=== PATIENT | female | born 1930 | race Caucasian/White ===

== ENCOUNTER 2017-01-11 10:11 | Outpatient (CLI) | payer MEDICARE, OTHER | END 2017-01-11 10:12 | disposition critical access hospital (66) | DX: R53.1 Weakness (principal); R53.83 Other fatigue | CPT/HCPCS: A0425; A0429 ==

== ENCOUNTER 2017-01-11 10:32 | Inpatient (IN) | payer MEDICARE, OTHER ==
[2017-01-11] MEDS ORDERED: SODIUM CHLORIDE 0.9% 1,000 ML IV ONE ×2 (11:07→13:08)
[2017-01-11] MEDS ORDERED: PANTOPRAZOLE 40 MG VIAL IVP STA (13:00)
[2017-01-11] MEDS ORDERED: PANTOPRAZOLE 40 MG VIAL ONE (13:15)
[2017-01-11] MEDS ORDERED: WATER FOR INJECTION,STERILE 10 ML ONE (13:16)
[2017-01-11] MEDS ORDERED: SODIUM CHLORIDE FLUSH 0.9% 10 ML SYRINGE IVP PRN (13:57)
[2017-01-11] MEDS ORDERED: FUROSEMIDE 20 MG/2 ML VIAL IVP PRN (14:42)
[2017-01-11] MEDS: SODIUM CHLORIDE FLUSH 0.9% 10 ML SYRINGE IVP SCH ×2 (14:56→23:46)
[2017-01-11] MEDS: SODIUM CHLORIDE 0.9% 1,000 ML IV SCH (14:56)
[2017-01-11] MEDS ORDERED: PANTOPRAZOLE 40 MG TABLET PO SCH (17:00)
[2017-01-11] MEDS: ACETAMINOPHEN 325 MG TABLET PO PRN (18:32)
[2017-01-11] MEDS: MEMANTINE 5 MG TABLET PO SCH (21:01)
[2017-01-11] MEDS: SUCRALFATE 1 GM/10 ML UDC PO SCH (21:01)
[2017-01-12] MEDS: SODIUM CHLORIDE FLUSH 0.9% 10 ML SYRINGE IVP SCH ×3 (05:14→20:26)
[2017-01-12] MEDS: SUCRALFATE 1 GM/10 ML UDC PO SCH ×3 (05:14→16:07)
[2017-01-12] MEDS: PANTOPRAZOLE 40 MG TABLET PO SCH ×2 (06:35→16:07)
[2017-01-12] MEDS: POLYETHYLENE GLYCOL 3350 17 GM PACKET PO SCH (08:15)
[2017-01-12] MEDS: MULTIVITAMIN TABLET PO SCH (08:15)
[2017-01-12] MEDS: SERTRALINE 50 MG TABLET PO SCH (08:15)
[2017-01-12] MEDS: MEMANTINE 5 MG TABLET PO SCH ×2 (08:15→20:25)
[2017-01-12] MEDS: SODIUM CHLORIDE 0.9% 1,000 ML IV SCH ×2 (10:14→18:45)
[2017-01-12] MEDS ORDERED: IOPAMIDOL-300 50 ML VIAL PO ONE (23:00)
[2017-01-13] MEDS: SODIUM CHLORIDE 0.9% 1,000 ML IV SCH ×2 (04:57→14:02)
[2017-01-13] MEDS: SODIUM CHLORIDE FLUSH 0.9% 10 ML SYRINGE IVP SCH ×2 (06:27→14:02)
[2017-01-13] MEDS: MEMANTINE 5 MG TABLET PO SCH (08:35)
[2017-01-13] MEDS: POLYETHYLENE GLYCOL 3350 17 GM PACKET PO SCH (08:35)
[2017-01-13] MEDS: MULTIVITAMIN TABLET PO SCH (08:35)
[2017-01-13] MEDS: ACETAMINOPHEN 325 MG TABLET PO PRN (08:36)
[2017-01-13] MEDS: SERTRALINE 50 MG TABLET PO SCH (08:36)
[2017-01-13] MEDS ORDERED: LISINOPRIL 5 MG TABLET PO SCH (09:00)
== END 2017-01-13 16:15 | disposition hospice, home (50) | DRG 378 ==
PROC: 30233N1 Transfusion of Nonautologous Red Blood Cells into Peripheral Vein, Percutaneous Approach (ICD-10-PCS; principal; 2017-01-11)
DX: K92.2 Gastrointestinal hemorrhage, unspecified (principal); K92.1 Melena; D50.0 Iron deficiency anemia secondary to blood loss (chronic); E86.0 Dehydration; I10 Essential (primary) hypertension; E11.9 Type 2 diabetes mellitus without complications; K21.9 Gastro-esophageal reflux disease without esophagitis; D62 Acute posthemorrhagic anemia; C18.7 Malignant neoplasm of sigmoid colon; C77.2 Secondary and unspecified malignant neoplasm of intra-abdominal lymph nodes; N18.4 Chronic kidney disease, stage 4 (severe); N17.9 Acute kidney failure, unspecified; F03.90 Unspecified dementia, unspecified severity, without behavioral disturbance, psychotic disturbance, mood disturbance, and anxiety; I12.9 Hypertensive chronic kidney disease with stage 1 through stage 4 chronic kidney disease, or unspecified chronic kidney disease; E11.22 Type 2 diabetes mellitus with diabetic chronic kidney disease; K57.90 Diverticulosis of intestine, part unspecified, without perforation or abscess without bleeding; E78.5 Hyperlipidemia, unspecified; F32.9 Major depressive disorder, single episode, unspecified; M10.9 Gout, unspecified; M81.0 Age-related osteoporosis without current pathological fracture; M54.5 Low back pain; Z79.82 Long term (current) use of aspirin; Z87.440 Personal history of urinary (tract) infections; Z90.49 Acquired absence of other specified parts of digestive tract; Z79.899 Other long term (current) drug therapy

== ENCOUNTER 2017-03-18 15:38 | Outpatient (CLI) | payer MEDICARE, OTHER ==
[2017-03-18 19:17] LABS: BASOPHILS # (AUTO) 0.1 10^3/uL (0.0-0.1); BASOPHILS % (AUTO) 1.2 %; EOSINOPHILS # (AUTO) 0.2 10^3/uL (0.0-0.7); EOSINOPHILS % (AUTO) 3.1 %; HCT - HEMATOCRIT 22.5 % (37.0-47.0); LYMPHOCYTES % (AUTO) 13.9 %; MEAN CORPUSCULAR HEMOGLOBIN 19.8 pg (27.0-31.0); MEAN CORPUSCULAR HGB CONC 30.9 g/dL (32.0-36.0); MEAN CORPUSCULAR VOLUME 63.9 fL (81.0-99.0); MEAN PLATELET VOLUME 8.6 fL (7.9-10.8); MONOCYTES # (AUTO) 0.7 10^3/uL (0.0-1.0); MONOCYTES % (AUTO) 10.2 %; NEUTROPHILS % (AUTO) 71.6 %; RED BLOOD COUNT 3.52 10^6/uL (4.20-5.40); RED CELL DISTRIBUTION WIDTH 22.4 % (12.0-15.0)
[2017-03-18 19:39] LABS: ALBUMIN/GLOBULIN RATIO 1.5 (1.0-2.2); BILIRUBIN,TOTAL 0.2 mg/dL (0.2-1.0); BUN - BLOOD UREA NITROGEN 34 mg/dL (6-20); CALCIUM 8.9 mg/dL (8.5-10.3); CARBON DIOXIDE - CO2 22 mmol/L (21-32); CHLORIDE 108 mmol/L (101-111); GFR - MDRD 24 (>89); GLUCOSE 120 mg/dL (70-100); SODIUM 140 mmol/L (135-145); TOTAL PROTEIN 5.9 g/dL (6.7-8.2)
[2017-03-18 19:42] LABS: PLATELET MORPHOLOGY NORMAL APPEARANCE (NORMAL)
[2017-03-18 19:43] LABS: PLATELET ESTIMATE, MANUAL NORMAL (130-450,000) (NORMAL)
== END 2017-03-18 15:39 | disposition home or self-care (01) ==
LOC: LAB.R 15:38
PROVIDERS: ATTEND Family Medicine
DX: K92.2 Gastrointestinal hemorrhage, unspecified (principal); N18.4 Chronic kidney disease, stage 4 (severe)
CPT/HCPCS: 80053; 85025